=== PATIENT | male | born 1985 | race Caucasian/White ===

== ENCOUNTER 2021-10-03 20:30 | Emergency (ER) | payer OTHER ==
[~2021-10-03] VITALS: Ht 177.8 cm; Wt 72.7 kg
[2021-10-03] MEDS ORDERED: AMOX875T2 PO (23:20)
[2021-10-03] MEDS ORDERED: AUGMENTIN 875 MG TAB PO ONE (23:20)
[2021-10-03 23:29] VITALS: BP 117/62
== END 2021-10-03 23:31 | disposition home or self-care (01) ==
LOC: M ED 20:30
DX: S51.852A Open bite of left forearm, initial encounter (principal); W54.0XXA Bitten by dog, initial encounter; Y92.099 Unspecified place in other non-institutional residence as the place of occurrence of the external cause; Y93.9 Activity, unspecified; Y99.9 Unspecified external cause status